=== PATIENT | male | born 1980 | race American Indian/Alaskan Native ===

== ENCOUNTER 2023-02-01 21:59 | Emergency (ER) | payer SELFPAY ==
[2023-02-01] MEDS ORDERED: Albuterol/Ipratropium 3.0-0.5 MG/3 ML Neb Soln NEB ONE (22:51)
[2023-02-01 23:14] LABS: BASOPHILS PERCENT AUTO 0.3 % (0.0-1.0); EOSINOPHILS PERCENT AUTO 3.4 % (1.0-3.0); HEMATOCRIT 42.5 % (40.0-54.0); HEMOGLOBIN 14.1 g/dL (14.0-18.0); LYMPHOCYTES PERCENT AUTO 23.7 % (20.5-50.1); MEAN CORPUSCULAR HEMOGLOBIN 28.4 pg (27.0-34.0); MEAN CORPUSCULAR HGB CONC 33.2 g/dL (33.0-35.0); MEAN CORPUSCULAR VOLUME 85.7 fL (80-100); MONOCYTES PERCENT AUTO 6.6 % (2-8); PLATELET COUNT,PLT 291 10^3/uL (150-450); RED BLOOD CELL COUNT 4.96 10^6/uL (4.6-6.2); WHITE BLOOD CELL COUNT,WBC 11.3 10^3/uL (5.0-10.0)
[2023-02-01 23:37] LABS: ALBUMIN 3.1 g/dL (3.4-5.0); ANION GAP 16.1 mEq/L (7-13); BILIRUBIN TOTAL 0.4 mg/dL (0.2-1.0); BUN/CREATININE RATIO 15.4 (No establ ref range); C-REACTIVE PROTEIN 2.53 ng/dL (<=0.30); CALCIUM 8.8 mg/dL (8.5-10.1); CREATININE 0.91 mg/dL (0.70-1.30); EST CRCL DRUG DOSING (CG) 116.07 mL/min; POTASSIUM,K 4.1 mmol/L (3.5-5.1); PROTEIN TOTAL,TP 6.8 g/dL (6.4-8.2)
[2023-02-01 23:38] LABS: LACTIC ACID 1.3 mmol/L (0.4-2.0)
[2023-02-01 23:41] LABS: A/G RATIO 0.84
[2023-02-01] MEDS ORDERED: Aspirin 81 MG Tab.Chew PO ONE (23:44)
[2023-02-02] MEDS ORDERED: Iopamidol 755 Mg/ML 100 ML Bottle IVPUSH ONE (00:26)
[2023-02-02] MEDS ORDERED: Furosemide 20 MG/2 ML VIAL IVPUSH ONE (01:03)
[2023-02-02] MEDS ORDERED: Heparin Sodium 5,000 Units/ML Vial IVPUSH ONE (02:36)
[2023-02-02] MEDS ORDERED: Heparin Sodium/0.45% NaCl 25,000 UNITS/500 ML BAG IV SCH (02:45)
[2023-02-02 02:58] LABS: PROTHROMBIN TIME 10.1 SEC (9.0-12.0); PTT,PARTIAL THROMBOPLSTIN TIME 25.5 SEC (22.0-34.0)
== END 2023-02-02 04:19 ==
LOC: DL.ED 21:59
DX: I51.7 Cardiomegaly (principal); R77.8 Other specified abnormalities of plasma proteins; I50.9 Heart failure, unspecified; F17.210 Nicotine dependence, cigarettes, uncomplicated; Z20.822 Contact with and (suspected) exposure to COVID-19
CPT/HCPCS: 36415; 71045; 71275; 80053; 83605; 83690; 83880; 84484; 85025; 85379; 85610; 85730; 86140; 87804; 93005; 93010; 96365; 96375; 99284; 99285-25; A9270-GY; J1644; J1940; J7620-GY; Q9967; U0002

== ENCOUNTER 2023-05-03 16:35 | Emergency (ER) | payer MEDICAID ==
[2023-05-03 18:34] LABS: BASOPHILS PERCENT AUTO 0.2 % (0.0-1.0); HEMOGLOBIN 12.6 g/dL (14.0-18.0); LYMPHOCYTES PERCENT AUTO 24.9 % (20.5-50.1); MEAN CORPUSCULAR HEMOGLOBIN 24.2 pg (27.0-34.0); MEAN CORPUSCULAR HGB CONC 30.7 g/dL (33.0-35.0); MEAN CORPUSCULAR VOLUME 78.7 fL (80-100); MONOCYTES PERCENT AUTO 10.2 % (2-8); NEUTROPHILS PERCENT AUTO 63.7 % (42.2-75.2); PLATELET COUNT,PLT 324 10^3/uL (150-450); RED BLOOD CELL COUNT 5.21 10^6/uL (4.6-6.2); WHITE BLOOD CELL COUNT,WBC 9.2 10^3/uL (5.0-10.0)
[2023-05-03 18:54] LABS: A/G RATIO 0.9; ALBUMIN 3.5 g/dL (3.4-5.0); ANION GAP 13.3 mEq/L (7-13); BILIRUBIN TOTAL 1.1 mg/dL (0.2-1.0); BUN/CREATININE RATIO 18.8 (No establ ref range); CALCIUM 8.9 mg/dL (8.5-10.1); CREATININE 1.44 mg/dL (0.70-1.30); POTASSIUM,K 4.3 mmol/L (3.5-5.1); PROTEIN TOTAL,TP 7.3 g/dL (6.4-8.2)
[2023-05-03] MEDS ORDERED: Furosemide 40 MG/4 ML VIAL IVPUSH ONE (19:55)
== END 2023-05-03 22:58 | disposition home or self-care (01) ==
LOC: DL.ED 16:35
DX: I50.9 Heart failure, unspecified (principal); F17.210 Nicotine dependence, cigarettes, uncomplicated; Z95.5 Presence of coronary angioplasty implant and graft
CPT/HCPCS: 36415; 71045; 80053; 83880; 84484; 85025; 93005; 93010; 96374; 99284; 99284-25; J1940

== ENCOUNTER 2023-05-11 08:59 | Emergency (ER) | payer MEDICAID ==
[2023-05-11] MEDS ORDERED: Sodium Chloride 0.9% 10 ML Syringe FLUSH PRN (09:26)
[2023-05-11] MEDS ORDERED: Furosemide 40 MG/4 ML VIAL IVPUSH ONE (09:26)
[2023-05-11 09:54] LABS: BASOPHILS PERCENT AUTO 0.3 % (0.0-1.0); EOSINOPHILS PERCENT AUTO 0.2 % (1.0-3.0); HEMOGLOBIN 12.5 g/dL (14.0-18.0); LYMPHOCYTES PERCENT AUTO 20.5 % (20.5-50.1); MEAN CORPUSCULAR HEMOGLOBIN 23.7 pg (27.0-34.0); MEAN CORPUSCULAR HGB CONC 31.3 g/dL (33.0-35.0); MEAN CORPUSCULAR VOLUME 75.9 fL (80-100); MONOCYTES PERCENT AUTO 10.4 % (2-8); NEUTROPHILS PERCENT AUTO 68.6 % (42.2-75.2); PLATELET COUNT,PLT 323 10^3/uL (150-450); RED BLOOD CELL COUNT 5.27 10^6/uL (4.6-6.2); WHITE BLOOD CELL COUNT,WBC 11.1 10^3/uL (5.0-10.0)
[2023-05-11 10:17] LABS: A/G RATIO 0.9; ALBUMIN 3.4 g/dL (3.4-5.0); ANION GAP 17.2 mEq/L (7-13); BILIRUBIN TOTAL 1.9 mg/dL (0.2-1.0); CALCIUM 8.8 mg/dL (8.5-10.1); CREATININE 1.56 mg/dL (0.70-1.30); EST CRCL DRUG DOSING (CG) 61.69 mL/min; POTASSIUM,K 5.2 mmol/L (3.5-5.1); PROTEIN TOTAL,TP 7.1 g/dL (6.4-8.2)
[2023-05-11] MEDS ORDERED: Lidocaine 1% with EPINEPHrine 1:100,000 20 ML MDV ONE (10:37)
[2023-05-13 09:41] LABS: BASO'S 0 /cu mm; EO'S 0 /cu mm; LYMPH'S 270 /cu mm; MONO'S 203 /cu mm; OTHER 11 /cu mm; PMN'S 36 /cu mm
== END 2023-05-11 12:26 ==
LOC: DL.ED 08:59
DX: I50.9 Heart failure, unspecified (principal); R18.8 Other ascites; Z79.899 Other long term (current) drug therapy; Z79.01 Long term (current) use of anticoagulants; Z79.82 Long term (current) use of aspirin
CPT/HCPCS: 36415; 49082; 71045; 80053; 82042; 83880; 84157; 84484; 85025; 87070; 89051; 93005; 93010; 96374; 99284; 99285; J1940; J3490

== ENCOUNTER 2023-05-20 04:35 | Emergency (ER) | payer MEDICAID ==
[2023-05-20] MEDS ORDERED: Sodium Chloride 0.9% 10 ML Syringe FLUSH PRN (04:45)
[2023-05-20 04:59] LABS: BASOPHILS PERCENT AUTO 0.4 % (0.0-1.0); EOSINOPHILS PERCENT AUTO 0.8 % (1.0-3.0); HEMATOCRIT 40.8 % (40.0-54.0); HEMOGLOBIN 12.9 g/dL (14.0-18.0); LYMPHOCYTES PERCENT AUTO 13.3 % (20.5-50.1); MEAN CORPUSCULAR HEMOGLOBIN 23.8 pg (27.0-34.0); MEAN CORPUSCULAR HGB CONC 31.6 g/dL (33.0-35.0); MEAN CORPUSCULAR VOLUME 75.4 fL (80-100); MONOCYTES PERCENT AUTO 9.3 % (2-8); NEUTROPHILS PERCENT AUTO 76.2 % (42.2-75.2); PLATELET COUNT,PLT 239 10^3/uL (150-450); RED BLOOD CELL COUNT 5.41 10^6/uL (4.6-6.2); WHITE BLOOD CELL COUNT,WBC 8.6 10^3/uL (5.0-10.0)
[2023-05-20 05:14] LABS: C-REACTIVE PROTEIN 1.07 ng/dL (<=0.50)
[2023-05-20 05:20] LABS: ALBUMIN 3.6 g/dL (3.4-5.0); ANION GAP 16.6 mEq/L (7-13); BILIRUBIN TOTAL 0.9 mg/dL (0.2-1.0); BUN/CREATININE RATIO 19.7 (No establ ref range); CALCIUM 8.3 mg/dL (8.5-10.1); CREATININE 1.42 mg/dL (0.70-1.30); EST CRCL DRUG DOSING (CG) 65.56 mL/min; MAGNESIUM 1.6 mg/dL (1.8-2.4); POTASSIUM,K 4.6 mmol/L (3.5-5.1); PROTEIN TOTAL,TP 7.1 g/dL (6.4-8.2)
[2023-05-20 05:22] LABS: LACTIC ACID 1.4 mmol/L (0.4-2.0)
[2023-05-20 05:24] LABS: INR 1.2 (0.9-1.2); PROTHROMBIN TIME 12.2 SEC (9.0-12.0); PTT,PARTIAL THROMBOPLSTIN TIME 27.9 SEC (22.0-34.0)
[2023-05-20] MEDS ORDERED: Bumetanide 1 MG/4 ML MDV IVPUSH ONE (05:26)
[2023-05-20 05:45] LABS: INFLUENZA A NAA POSITIVE (NEGATIVE); INFLUENZA B NAA NEGATIVE (NEGATIVE); RESPIRATORY SYNCYTIAL VIR NAA NEGATIVE (NEGATIVE)
[2023-05-20 05:46] LABS: CORONAVIRUS COVID-19 NAA POSITIVE (NEGATIVE)
[2023-05-20] MEDS ORDERED: LORazepam 2 MG/ML SDV IVPUSH ONE (06:05)
[2023-05-20] MEDS ORDERED: Sodium Chloride 0.9% 500 ML IV ONE (07:09)
[2023-05-20] MEDS ORDERED: Magnesium Sulfate/Water 2 GM in Premix Bag 1 BAG IV ONE (07:56)
[2023-05-20] MEDS ORDERED: diphenhydrAMINE 50 MG/ML SDV IVPUSH ONE (08:45)
== END 2023-05-20 08:57 | disposition home or self-care (01) ==
LOC: DL.ED 04:35
DX: U07.1 COVID-19 (principal); J11.1 Influenza due to unidentified influenza virus with other respiratory manifestations; I11.0 Hypertensive heart disease with heart failure; I50.9 Heart failure, unspecified; I25.10 Atherosclerotic heart disease of native coronary artery without angina pectoris; I25.2 Old myocardial infarction; Z95.0 Presence of cardiac pacemaker; Z95.1 Presence of aortocoronary bypass graft; Z86.16 Personal history of COVID-19; Z79.01 Long term (current) use of anticoagulants; Z79.84 Long term (current) use of oral hypoglycemic drugs; Z79.82 Long term (current) use of aspirin; Z79.899 Other long term (current) drug therapy
CPT/HCPCS: 0241U; 36415; 71045; 80053; 83605; 83735; 83880; 84145; 84484; 85025; 85610; 85730; 86140; 87040; 93005; 94660; 96374; 96375; 99285; J1200; J2060; J3475; J3490; J7040

== ENCOUNTER 2023-06-25 20:34 | Emergency (ER) | payer MEDICAID ==
[2023-06-25] MEDS ORDERED: Sodium Chloride 0.9% 10 ML Syringe FLUSH PRN (21:15)
[2023-06-25 21:28] LABS: BASOPHILS PERCENT AUTO 0.4 % (0.0-1.0); EOSINOPHILS PERCENT AUTO 1.6 % (1.0-3.0); HEMATOCRIT 41.1 % (40.0-54.0); LYMPHOCYTES PERCENT AUTO 25.4 % (20.5-50.1); MEAN CORPUSCULAR HEMOGLOBIN 23.8 pg (27.0-34.0); MEAN CORPUSCULAR HGB CONC 31.6 g/dL (33.0-35.0); MEAN CORPUSCULAR VOLUME 75.3 fL (80-100); MONOCYTES PERCENT AUTO 8.5 % (2-8); NEUTROPHILS PERCENT AUTO 64.1 % (42.2-75.2); PLATELET COUNT,PLT 266 10^3/uL (150-450); RED BLOOD CELL COUNT 5.46 10^6/uL (4.6-6.2)
[2023-06-25 21:47] LABS: A/G RATIO 1.1; ALBUMIN 3.6 g/dL (3.4-5.0); ANION GAP 17.8 mEq/L (7-13); BILIRUBIN TOTAL 1.1 mg/dL (0.2-1.0); BUN/CREATININE RATIO 16.8 (No establ ref range); CALCIUM 8.6 mg/dL (8.5-10.1); CREATININE 1.25 mg/dL (0.70-1.30); EST CRCL DRUG DOSING (CG) 76.98 mL/min; POTASSIUM,K 3.8 mmol/L (3.5-5.1); PROTEIN TOTAL,TP 6.8 g/dL (6.4-8.2)
[2023-06-25 21:51] LABS: INR 1.2 (0.9-1.2); PTT,PARTIAL THROMBOPLSTIN TIME 26.5 SEC (22.0-34.0)
[2023-06-25] MEDS ORDERED: Furosemide 40 MG/4 ML VIAL IVPUSH ONE (22:14)
== END 2023-06-25 22:52 | disposition home or self-care (01) ==
LOC: DL.ED 20:34
DX: E87.70 Fluid overload, unspecified (principal); R18.8 Other ascites; I50.9 Heart failure, unspecified; I25.10 Atherosclerotic heart disease of native coronary artery without angina pectoris; Z79.82 Long term (current) use of aspirin; Z79.01 Long term (current) use of anticoagulants; Z95.1 Presence of aortocoronary bypass graft; Z86.16 Personal history of COVID-19
CPT/HCPCS: 36415; 71045; 80053; 83690; 83880; 84484; 85025; 85610; 85730; 93010; 96374; 99284; 99285-25; J1940; J3490

== ENCOUNTER 2023-07-23 20:10 | Emergency (ER) | payer MEDICAID ==
[2023-07-23 20:46] LABS: BASOPHILS PERCENT AUTO 0.4 % (0.0-1.0); EOSINOPHILS PERCENT AUTO 0.3 % (1.0-3.0); HEMATOCRIT 41.2 % (40.0-54.0); HEMOGLOBIN 13.3 g/dL (14.0-18.0); LYMPHOCYTES PERCENT AUTO 20.7 % (20.5-50.1); MEAN CORPUSCULAR HEMOGLOBIN 23.5 pg (27.0-34.0); MEAN CORPUSCULAR HGB CONC 32.3 g/dL (33.0-35.0); MEAN CORPUSCULAR VOLUME 72.8 fL (80-100); MONOCYTES PERCENT AUTO 9.9 % (2-8); NEUTROPHILS PERCENT AUTO 68.7 % (42.2-75.2); PLATELET COUNT,PLT 308 10^3/uL (150-450); RED BLOOD CELL COUNT 5.66 10^6/uL (4.6-6.2); WHITE BLOOD CELL COUNT,WBC 10.8 10^3/uL (5.0-10.0)
[2023-07-23 21:06] LABS: A/G RATIO 1.1; ALANINE AMINOTRANSFERASE,ALT 91 U/L (16-63); ALBUMIN 3.6 g/dL (3.4-5.0); ALKALINE PHOSPHATASE 127 U/L (46-116); ANION GAP 18.8 mEq/L (7-13); ASPARTATE AMNIOTRANSFERASE,AST 101 U/L (15-37); BILIRUBIN TOTAL 1.8 mg/dL (0.2-1.0); BLOOD UREA NITROGEN,BUN 35 mg/dL (7-18); BUN/CREATININE RATIO 17.5 (No establ ref range); CALCIUM 8.7 mg/dL (8.5-10.1); CARBON DIOXIDE,CO2 22 mmol/L (21-32); CHLORIDE,CL 95 mmol/L (98-107); GLUCOSE RANDOM 107 mg/dL (70-99); MAGNESIUM 1.8 mg/dL (1.8-2.4); POTASSIUM,K 4.8 mmol/L (3.5-5.1); PROTEIN TOTAL,TP 6.8 g/dL (6.4-8.2); SODIUM,NA 131 mmol/L (136-145)
[2023-07-23 21:28] LABS: ESTIMATED GFR 42 mL/min (>=60)
[2023-07-23] MEDS: Lactated Ringers 1,000 ML IV ONE ×2 (21:56→23:47)
[2023-07-24 01:01] LABS: A/G RATIO 1.1; ALANINE AMINOTRANSFERASE,ALT 114 U/L (16-63); ALBUMIN 3.4 g/dL (3.4-5.0); ALKALINE PHOSPHATASE 125 U/L (46-116); ANION GAP 17.6 mEq/L (7-13); ASPARTATE AMNIOTRANSFERASE,AST 127 U/L (15-37); BILIRUBIN TOTAL 1.8 mg/dL (0.2-1.0); BLOOD UREA NITROGEN,BUN 37 mg/dL (7-18); BUN/CREATININE RATIO 18.6 (No establ ref range); CALCIUM 8.8 mg/dL (8.5-10.1); CARBON DIOXIDE,CO2 23 mmol/L (21-32); CHLORIDE,CL 97 mmol/L (98-107); CREATININE 1.99 mg/dL (0.70-1.30); GLUCOSE RANDOM 95 mg/dL (70-99); POTASSIUM,K 5.6 mmol/L (3.5-5.1); PROTEIN TOTAL,TP 6.5 g/dL (6.4-8.2); SODIUM,NA 132 mmol/L (136-145)
[2023-07-24 01:03] LABS: ESTIMATED GFR 42 mL/min (>=60)
[2023-07-24 02:10] LABS: BILIRUBIN,URINE SMALL (NEGATIVE); COLOR,URINE DARK YELLOW (YELLOW); GLUCOSE,URINE NEGATIVE (NEGATIVE); KETONES,URINE NEGATIVE (NEGATIVE); LEUKOCYTE ESTERASE,URINE NEGATIVE (NEGATIVE); NITRITE,URINE NEGATIVE (NEGATIVE); OCCULT BLOOD,URINE NEGATIVE (NEGATIVE); PH,URINE 5.5 (5.0-9.0); PROTEIN,URINE 100 (NEGATIVE); UROBILINOGEN,URINE >=8.0 mg/dL (0.2-1.0)
[2023-07-24] MEDS: cefTRIAXone 2 GM Vial IVPUSH ONE (02:13)
[2023-07-24 02:17] LABS: APPEARANCE,URINE CLEAR (CLEAR)
[2023-07-24 02:18] LABS: BACTERIA,URINE FEW /HPF (0-FEW/HPF); EPITHELIAL CELLS,URINE FEW /HPF (NOT SEEN); MUCUS,URINE FEW /LPF (NOT SEEN); RBC,URINE 0-5 /HPF (0-5); WBC,URINE 0-5 /HPF (0-5/HPF)
[2023-07-24 02:19] LABS: CALCIUM OXALATE CRYSTALS,URINE RARE /HPF (NOT SEEN); HYALINE CASTS,URINE FEW
[2023-07-24 02:21] LABS: BLOOD UREA NITROGEN,BUN 37 mg/dL (7-18); CALCIUM 9.3 mg/dL (8.5-10.1); CARBON DIOXIDE,CO2 23 mmol/L (21-32); CHLORIDE,CL 95 mmol/L (98-107); CREATININE 1.99 mg/dL (0.70-1.30); ESTIMATED GFR 42 mL/min (>=60); GLUCOSE RANDOM 91 mg/dL (70-99); SODIUM,NA 132 mmol/L (136-145)
[2023-07-24] MEDS: Ondansetron 4 MG/2 ML SDV IVPUSH ONE (02:29)
[2023-07-24 03:28] LABS: INR 1.7 (0.9-1.2)
== END 2023-07-24 03:45 | disposition critical access hospital (66) ==
LOC: DL.ED 20:10 → SUPCPDRO 20:10 → DL.ED 07-24 03:45
DX: N17.9 Acute kidney failure, unspecified (principal); R55 Syncope and collapse; I11.0 Hypertensive heart disease with heart failure; I50.9 Heart failure, unspecified; E11.9 Type 2 diabetes mellitus without complications; E78.00 Pure hypercholesterolemia, unspecified; F17.210 Nicotine dependence, cigarettes, uncomplicated; Z95.1 Presence of aortocoronary bypass graft; Z79.82 Long term (current) use of aspirin; Z79.01 Long term (current) use of anticoagulants; Z79.899 Other long term (current) drug therapy; Z79.84 Long term (current) use of oral hypoglycemic drugs
CPT/HCPCS: 36415; 71046; 80048; 80053; 81001; 83605; 83735; 83880; 84145; 84484; 85025; 85610; 87040; 93005; 93010; 96361; 96374; 96375; 99285; J0696; J2405; J7120

== ENCOUNTER 2024-03-12 04:03 | Emergency (ER) | payer SELFPAY ==
[2024-03-12 04:33] LABS: BASOPHILS PERCENT AUTO 0.3 % (0.0-1.0); EOSINOPHILS PERCENT AUTO 0.4 % (1.0-3.0); HEMATOCRIT 47.6 % (40.0-54.0); HEMOGLOBIN 14.8 g/dL (14.0-18.0); LYMPHOCYTES PERCENT AUTO 14.8 % (20.5-50.1); MEAN CORPUSCULAR HEMOGLOBIN 24.5 pg (27.0-34.0); MEAN CORPUSCULAR HGB CONC 31.1 g/dL (33.0-35.0); MEAN CORPUSCULAR VOLUME 78.9 fL (80-100); MONOCYTES PERCENT AUTO 10.2 % (2-8); NEUTROPHILS PERCENT AUTO 74.3 % (42.2-75.2); PLATELET COUNT,PLT 328 10^3/uL (150-450); RED BLOOD CELL COUNT 6.03 10^6/uL (4.6-6.2); WHITE BLOOD CELL COUNT,WBC 10.5 10^3/uL (5.0-10.0)
[2024-03-12] MEDS: Sodium Chloride 0.9% 1,000 ML IV ONE (04:45)
[2024-03-12] MEDS: Ondansetron 4 MG in Sodium Chloride 0.9% 50 ML IV ONE (04:47)
[2024-03-12 04:48] LABS: B-TYPE NATRIURETIC PEPTIDE,BNP 2880 pg/ml (0-100)
[2024-03-12 04:49] LABS: LACTIC ACID 2.3 mmol/L (0.4-2.0)
[2024-03-12 04:50] LABS: ALANINE AMINOTRANSFERASE,ALT 32 U/L (16-63); ALBUMIN 3.3 g/dL (3.4-5.0); ALKALINE PHOSPHATASE 165 U/L (46-116); ANION GAP 15.7 mEq/L (7-13); ASPARTATE AMNIOTRANSFERASE,AST 26 U/L (15-37); BILIRUBIN TOTAL 1.4 mg/dL (0.2-1.0); BLOOD UREA NITROGEN,BUN 20 mg/dL (7-18); BUN/CREATININE RATIO 13.2 (No establ ref range); CALCIUM 8.9 mg/dL (8.5-10.1); CARBON DIOXIDE,CO2 24 mmol/L (21-32); CHLORIDE,CL 102 mmol/L (98-107); CREATININE 1.51 mg/dL (0.70-1.30); GLUCOSE RANDOM 160 mg/dL (70-99); POTASSIUM,K 4.7 mmol/L (3.5-5.1); PROTEIN TOTAL,TP 6.3 g/dL (6.4-8.2); SODIUM,NA 137 mmol/L (136-145)
[2024-03-12 04:52] LABS: INR 1.4 (0.9-1.2); PROTHROMBIN TIME 13.8 SEC (9.0-12.0)
[2024-03-12] MEDS: Piperacillin/Tazobactam 3.375 GM in Sodium Chloride 0.9% 100 ML IV ONE (04:57)
[2024-03-12 05:01] LABS: C-REACTIVE PROTEIN < 0.50 ng/dL (<=0.50); ESTIMATED GFR 58 mL/min (>=60)
[2024-03-12] MEDS: Albuterol/Ipratropium 3.0-0.5 MG/3 ML Neb Soln NEB ONE (05:27)
[2024-03-12] MEDS: Iopamidol 755 Mg/ML 100 ML Bottle IVPUSH ONE (05:44)
[2024-03-12] MEDS: Magnesium Sulfate/Water Premix 2 GM in Premix Bag 1 BAG IV SCH (06:31)
[2024-03-12 07:37] LABS: AMPHETAMINES,URINE NEGATIVE (NEGATIVE); BARBITURATES,URINE NEGATIVE (NEGATIVE); BENZODIAZEPINE,URINE NEGATIVE (NEGATIVE); MDMA (ECSTASY), URINE NEGATIVE (NEGATIVE); METHADONE,URINE NEGATIVE (NEGATIVE); METHAMPHETAMINES,URINE POSITIVE (NEGATIVE); OPIATES,URINE NEGATIVE (NEGATIVE); OXYCODONE,URINE NEGATIVE (NEGATIVE); PHENCYCLIDINE,URINE NEGATIVE (NEGATIVE); TCA,URINE NEGATIVE (NEGATIVE)
[2024-03-12 07:41] LABS: APPEARANCE,URINE CLEAR (CLEAR); BILIRUBIN,URINE NEGATIVE (NEGATIVE); COLOR,URINE YELLOW (YELLOW); GLUCOSE,URINE NEGATIVE (NEGATIVE); KETONES,URINE NEGATIVE (NEGATIVE); LEUKOCYTE ESTERASE,URINE NEGATIVE (NEGATIVE); NITRITE,URINE NEGATIVE (NEGATIVE); OCCULT BLOOD,URINE NEGATIVE (NEGATIVE); PH,URINE 5.5 (5.0-9.0); PROTEIN,URINE 100 (NEGATIVE)
[2024-03-12] MEDS: Pantoprazole 40 MG Vial IVPUSH ONE (07:48)
[2024-03-12 07:57] LABS: BACTERIA,URINE FEW /HPF (0-FEW/HPF); EPITHELIAL CELLS,URINE FEW /HPF (NOT SEEN); HYALINE CASTS,URINE FEW; RBC,URINE 0-5 /HPF (0-5)
[2024-03-12 12:22] LABS: HEMATOCRIT 44.9 % (40.0-54.0); HEMOGLOBIN 13.9 g/dL (14.0-18.0)
== END 2024-03-12 13:47 ==
LOC: DL.ED 04:03
DX: K92.0 Hematemesis (principal); K76.0 Fatty (change of) liver, not elsewhere classified; R00.0 Tachycardia, unspecified; I11.0 Hypertensive heart disease with heart failure; I50.9 Heart failure, unspecified; E11.9 Type 2 diabetes mellitus without complications; Z79.82 Long term (current) use of aspirin; Z79.899 Other long term (current) drug therapy; Z79.4 Long term (current) use of insulin
CPT/HCPCS: 36415; 71045; 74177; 80053; 80305; 81001; 82140; 83605; 83690; 83735; 83880; 84484; 85014; 85018; 85025; 85610; 86140; 87040; 87635; 87804; 93010; 96365; 96367; 96375; 99285; J2405; J2470; J2543; J3475; J3490; J7030; Q9967; J7620-GY; U0002

== ENCOUNTER 2024-03-20 09:36 | Emergency (ER) | payer MEDICAID ==
[2024-03-20 10:48] LABS: BASOPHILS PERCENT AUTO 0.3 % (0.0-1.0); EOSINOPHILS PERCENT AUTO 1.1 % (1.0-3.0); HEMATOCRIT 43.3 % (40.0-54.0); HEMOGLOBIN 13.9 g/dL (14.0-18.0); LYMPHOCYTES PERCENT AUTO 8.7 % (20.5-50.1); MEAN CORPUSCULAR HGB CONC 32.1 g/dL (33.0-35.0); MONOCYTES PERCENT AUTO 7.9 % (2-8); PLATELET COUNT,PLT 198 10^3/uL (150-450); RED BLOOD CELL COUNT 5.55 10^6/uL (4.6-6.2); WHITE BLOOD CELL COUNT,WBC 11.5 10^3/uL (5.0-10.0)
[2024-03-20 11:19] LABS: A/G RATIO 1.8; ALBUMIN 3.6 g/dL (3.4-5.0); ANION GAP 12.5 mEq/L (7-13); BILIRUBIN TOTAL 1.2 mg/dL (0.2-1.0); CALCIUM 8.7 mg/dL (8.5-10.1); CREATININE 1.08 mg/dL (0.70-1.30); EST CRCL DRUG DOSING (CG) 85.32 mL/min; POTASSIUM,K 4.5 mmol/L (3.5-5.1); PROTEIN TOTAL,TP 5.6 g/dL (6.4-8.2)
== END 2024-03-20 11:54 | disposition home or self-care (01) ==
LOC: DL.ED 09:36
DX: T82.9XXA Unspecified complication of cardiac and vascular prosthetic device, implant and graft, initial encounter (principal); E87.1 Hypo-osmolality and hyponatremia; I25.10 Atherosclerotic heart disease of native coronary artery without angina pectoris; I11.0 Hypertensive heart disease with heart failure; I10 Essential (primary) hypertension; E11.9 Type 2 diabetes mellitus without complications; Z95.5 Presence of coronary angioplasty implant and graft; Z79.82 Long term (current) use of aspirin; Z79.84 Long term (current) use of oral hypoglycemic drugs; Z79.899 Other long term (current) drug therapy
CPT/HCPCS: 36415; 71046; 80053; 84484; 85025; 93005; 93010; 99284

== ENCOUNTER 2024-03-20 18:46 | Emergency (ER) | payer BC, MEDICAID | END 2024-03-20 20:55 | disposition left against medical advice (07) | LOC: DL.ED 18:46 | DX: Z53.21 Procedure and treatment not carried out due to patient leaving prior to being seen by health care provider (principal) ==

== ENCOUNTER 2024-04-13 03:03 | Emergency (ER) | payer MEDICAID ==
[2024-04-13 03:20] LABS: HEMATOCRIT 39.9 % (40.0-54.0); HEMOGLOBIN 12.9 g/dL (14.0-18.0); MEAN CORPUSCULAR HEMOGLOBIN 25.7 pg (27.0-34.0); MEAN CORPUSCULAR HGB CONC 32.3 g/dL (33.0-35.0); MEAN CORPUSCULAR VOLUME 79.6 fL (80-100); PLATELET COUNT,PLT 327 10^3/uL (150-450); RED BLOOD CELL COUNT 5.01 10^6/uL (4.6-6.2); WHITE BLOOD CELL COUNT,WBC 12.3 10^3/uL (5.0-10.0)
[2024-04-13 03:31] LABS: BASOPHILS PERCENT AUTO 0.3 % (0.0-1.0); EOSINOPHILS PERCENT AUTO 0.7 % (1.0-3.0); LYMPHOCYTES PERCENT AUTO 9.8 % (20.5-50.1); MONOCYTES PERCENT AUTO 9.9 % (2-8); NEUTROPHILS PERCENT AUTO 79.3 % (42.2-75.2)
[2024-04-13 04:02] LABS: ALBUMIN 3.3 g/dL (3.4-5.0); ANION GAP 13.2 mEq/L (7-13); BILIRUBIN TOTAL 0.5 mg/dL (0.2-1.0); BUN/CREATININE RATIO 30.8 (No establ ref range); CALCIUM 8.7 mg/dL (8.5-10.1); CREATININE 1.56 mg/dL (0.70-1.30); EST CRCL DRUG DOSING (CG) 61.06 mL/min; MAGNESIUM 1.7 mg/dL (1.8-2.4); POTASSIUM,K 4.2 mmol/L (3.5-5.1); PROTEIN TOTAL,TP 5.6 g/dL (6.4-8.2)
[2024-04-13 04:03] LABS: A/G RATIO 1.43
[2024-04-13] MEDS: Acetaminophen 325 MG Tab PO ONE (04:26)
[2024-04-13] MEDS: Magnesium Oxide 400 MG Tab PO ONE (04:26)
[2024-04-13] MEDS: Sodium Chloride 0.9% 500 ML IV ONE (04:29)
[2024-04-13 04:39] LABS: BAND PERCENT MAN 2 %; LYMPHOCYTES PERCENT MAN 6 % (20-50); MONOCYTES PERCENT MAN 8 % (2-8)
[2024-04-13 04:40] LABS: SEG NEUTROPHILS PERCENT MAN 84 % (42-75)
== END 2024-04-13 04:57 | disposition home or self-care (01) ==
LOC: DL.ED 03:03
DX: R25.2 Cramp and spasm (principal); E83.42 Hypomagnesemia; E87.1 Hypo-osmolality and hyponatremia; N28.9 Disorder of kidney and ureter, unspecified; I25.10 Atherosclerotic heart disease of native coronary artery without angina pectoris; I11.0 Hypertensive heart disease with heart failure; I50.9 Heart failure, unspecified; E11.9 Type 2 diabetes mellitus without complications; Z95.5 Presence of coronary angioplasty implant and graft; Z79.01 Long term (current) use of anticoagulants; Z79.82 Long term (current) use of aspirin; Z79.84 Long term (current) use of oral hypoglycemic drugs; Z79.899 Other long term (current) drug therapy
CPT/HCPCS: 36415; 80053; 82550; 83735; 85025; 99284; A9270-GY; J7030

== ENCOUNTER 2024-05-29 00:20 | Emergency (ER) | payer MEDICAID | END 2024-05-29 00:36 | disposition left against medical advice (07) | LOC: DL.ED 00:20 | DX: Z53.21 Procedure and treatment not carried out due to patient leaving prior to being seen by health care provider (principal) ==

== ENCOUNTER 2024-06-27 12:44 | Emergency (ER) | payer MEDICAID ==
[2024-06-27 13:40] LABS: HEMATOCRIT 33.5 % (40.0-54.0); HEMOGLOBIN 10.3 g/dL (14.0-18.0); MEAN CORPUSCULAR HGB CONC 30.7 g/dL (33.0-35.0); MEAN CORPUSCULAR VOLUME 74.8 fL (80-100); PLATELET COUNT,PLT 332 10^3/uL (150-450); RED BLOOD CELL COUNT 4.48 10^6/uL (4.6-6.2)
[2024-06-27 13:46] LABS: LYMPHOCYTES PERCENT AUTO 8.2 % (20.5-50.1); MONOCYTES PERCENT AUTO 8.1 % (2-8); NEUTROPHILS PERCENT AUTO 82.3 % (42.2-75.2)
[2024-06-27 13:47] LABS: BASOPHILS PERCENT AUTO 0.5 % (0.0-1.0); EOSINOPHILS PERCENT AUTO 0.9 % (1.0-3.0)
[2024-06-27 14:09] LABS: ALANINE AMINOTRANSFERASE,ALT 17 U/L (16-63); ALBUMIN 2.5 g/dL (3.4-5.0); ALKALINE PHOSPHATASE 212 U/L (46-116); ANION GAP 13.3 mEq/L (7-13); ASPARTATE AMNIOTRANSFERASE,AST 14 U/L (15-37); BILIRUBIN DIRECT 0.2 mg/dL (0.0-0.2); BILIRUBIN INDIRECT 0.3; BILIRUBIN TOTAL 0.5 mg/dL (0.2-1.0); BLOOD UREA NITROGEN,BUN 45 mg/dL (7-18); CARBON DIOXIDE,CO2 26 mmol/L (21-32); CHLORIDE,CL 89 mmol/L (98-107); MAGNESIUM 1.6 mg/dL (1.8-2.4); POTASSIUM,K 4.3 mmol/L (3.5-5.1); PROTEIN TOTAL,TP 5.8 g/dL (6.4-8.2); SODIUM,NA 124 mmol/L (136-145)
[2024-06-27 14:10] LABS: A/G RATIO 0.76; BAND PERCENT MAN 1 %; ESTIMATED GFR 54 mL/min (>=60); LYMPHOCYTES PERCENT MAN 9 % (20-50); MONOCYTES PERCENT MAN 9 % (2-8); SEG NEUTROPHILS PERCENT MAN 81 % (42-75)
[2024-06-27 14:11] LABS: GLUCOSE RANDOM 440 mg/dL (70-99)
[2024-06-27] MEDS ORDERED: 50% Dextrose in Water 50 ML Syringe IVPUSH PRN (14:15)
[2024-06-27] MEDS ORDERED: Glucagon,Human Recombinant 1 MG Vial IM PRN (14:15)
[2024-06-27] MEDS ORDERED: Sodium Chloride 0.9% 1,000 ML IV SCH (14:15)
[2024-06-27] MEDS: Insulin Regular, Human 100 Units/ML 10 ML Vial IV ONE (14:27)
[2024-06-27] MEDS: Sodium Chloride 0.9% 500 ML IV SCH (14:29)
[2024-06-27 16:31] LABS: BLOOD UREA NITROGEN,BUN 44 mg/dL (7-18); CALCIUM 8.2 mg/dL (8.5-10.1); CARBON DIOXIDE,CO2 28 mmol/L (21-32); CHLORIDE,CL 92 mmol/L (98-107); CREATININE 1.54 mg/dL (0.70-1.30); ESTIMATED GFR 57 mL/min (>=60); GLUCOSE RANDOM 246 mg/dL (70-99); SODIUM,NA 128 mmol/L (136-145)
== END 2024-06-27 17:05 | disposition home or self-care (01) ==
LOC: DL.ED 12:44
DX: U07.1 COVID-19 (principal); E87.1 Hypo-osmolality and hyponatremia; I11.0 Hypertensive heart disease with heart failure; I50.9 Heart failure, unspecified; I25.10 Atherosclerotic heart disease of native coronary artery without angina pectoris; E11.9 Type 2 diabetes mellitus without complications; Z95.1 Presence of aortocoronary bypass graft; Z79.84 Long term (current) use of oral hypoglycemic drugs; Z79.899 Other long term (current) drug therapy; Z79.01 Long term (current) use of anticoagulants; Z79.82 Long term (current) use of aspirin
CPT/HCPCS: 36415; 71045; 80048; 80076; 82947; 83735; 83880; 84484; 85025; 87040; 87428; 93005; 96360; 99285; A9270; J7030; 93010; 99284

== ENCOUNTER 2024-08-21 13:39 | Emergency (ER) | payer MEDICAID ==
[2024-08-21 14:49] LABS: BASOPHILS PERCENT AUTO 0.2 % (0.0-1.0); EOSINOPHILS PERCENT AUTO 0.7 % (1.0-3.0); HEMATOCRIT 36.5 % (40.0-54.0); HEMOGLOBIN 11.1 g/dL (14.0-18.0); LYMPHOCYTES PERCENT AUTO 6.3 % (20.5-50.1); MEAN CORPUSCULAR HEMOGLOBIN 20.9 pg (27.0-34.0); MEAN CORPUSCULAR HGB CONC 30.4 g/dL (33.0-35.0); MEAN CORPUSCULAR VOLUME 68.7 fL (80-100); MONOCYTES PERCENT AUTO 8.8 % (2-8); PLATELET COUNT,PLT 417 10^3/uL (150-450); RED BLOOD CELL COUNT 5.31 10^6/uL (4.6-6.2); WHITE BLOOD CELL COUNT,WBC 13.6 10^3/uL (5.0-10.0)
[2024-08-21 14:58] LABS: APPEARANCE,URINE CLEAR (CLEAR); BILIRUBIN,URINE NEGATIVE (NEGATIVE); COLOR,URINE DARK YELLOW (YELLOW); GLUCOSE,URINE 100 (NEGATIVE); KETONES,URINE NEGATIVE (NEGATIVE); LEUKOCYTE ESTERASE,URINE NEGATIVE (NEGATIVE); NITRITE,URINE NEGATIVE (NEGATIVE); OCCULT BLOOD,URINE NEGATIVE (NEGATIVE); PROTEIN,URINE NEGATIVE (NEGATIVE)
[2024-08-21 15:05] LABS: CALCIUM 8.4 mg/dL (8.5-10.1); CREATININE 1.39 mg/dL (0.70-1.30); EST CRCL DRUG DOSING (CG) 68.52 mL/min; POTASSIUM,K 4.8 mmol/L (3.5-5.1)
[2024-08-21 15:07] LABS: ANION GAP 13.8 mEq/L (7-13)
== END 2024-08-21 16:23 ==
LOC: DL.ED 13:39
DX: K70.40 Alcoholic hepatic failure without coma (principal); E87.1 Hypo-osmolality and hyponatremia; N28.9 Disorder of kidney and ureter, unspecified; I11.0 Hypertensive heart disease with heart failure; I50.9 Heart failure, unspecified; E11.9 Type 2 diabetes mellitus without complications; I25.10 Atherosclerotic heart disease of native coronary artery without angina pectoris; Z79.899 Other long term (current) drug therapy; Z79.82 Long term (current) use of aspirin; Z79.01 Long term (current) use of anticoagulants; Z79.84 Long term (current) use of oral hypoglycemic drugs; Z99.2 Dependence on renal dialysis
CPT/HCPCS: 36415; 80048; 81003; 85025; 99285

== ENCOUNTER 2025-02-11 21:14 | Inpatient (IN) | payer MEDICAID ==
[2025-02-11 21:39] LABS: BASOPHILS PERCENT AUTO 0.3 % (0.0-1.0); EOSINOPHILS PERCENT AUTO 4.0 % (1.0-3.0); LYMPHOCYTES PERCENT AUTO 6.3 % (20.5-50.1); MONOCYTES PERCENT AUTO 6.7 % (2-8); NEUTROPHILS PERCENT AUTO 82.7 % (42.2-75.2); PLATELET COUNT,PLT 276 10^3/uL (150-450); RED BLOOD CELL COUNT 5.53 10^6/uL (4.6-6.2); WHITE BLOOD CELL COUNT,WBC 10.1 10^3/uL (5.0-10.0)
[2025-02-11 21:48] LABS: O2 DELIVERY DEVICE ROOM AIR; PH,VENOUS 7.39 (7.31-7.41)
[2025-02-11 21:49] LABS: PCO2 VENOUS 46 mmHg (41-51); PO2 VENOUS 57 mmHg (35-42)
[2025-02-11 21:49] LABS: APPEARANCE,URINE CLEAR (CLEAR); GLUCOSE,URINE >=1000 (NEGATIVE); OCCULT BLOOD,URINE NEGATIVE (NEGATIVE)
[2025-02-11 21:50] LABS: BICARBONATE,VENOUS 27 mmol/l (19-25); O2 SATURATION VENOUS 84 % (60-80)
[2025-02-11 21:51] LABS: BASE EXCESS VENOUS 1.7 mmol/l ((-2)-(+3))
[2025-02-11] MEDS: Lactated Ringers 1,000 ML IV SCH (21:52)
[2025-02-11 21:53] LABS: KETONES,BLOOD NEGATIVE
[2025-02-11 22:00] LABS: ALANINE AMINOTRANSFERASE,ALT 27 U/L (16-63); ASPARTATE AMNIOTRANSFERASE,AST 22 U/L (15-37); BILIRUBIN TOTAL 0.9 mg/dL (0.2-1.0); BLOOD UREA NITROGEN,BUN 7 mg/dL (7-18); CARBON DIOXIDE,CO2 28 mmol/L (21-32); CHLORIDE,CL 89 mmol/L (98-107); CREATININE 1.07 mg/dL (0.70-1.30); EST CRCL DRUG DOSING (CG) 88.10 mL/min; POTASSIUM,K 3.2 mmol/L (3.5-5.1); PROTEIN TOTAL,TP 6.6 g/dL (6.4-8.2); SODIUM,NA 125 mmol/L (136-145)
[2025-02-11 22:02] LABS: LACTIC ACID 2.4 mmol/L (0.4-2.0)
[2025-02-11 22:03] LABS: A/G RATIO 0.89; ESTIMATED GFR 88 mL/min (>=60); GLUCOSE RANDOM 664 mg/dL (70-99)
[2025-02-11 22:03] LABS: EPITHELIAL CELLS,URINE RARE /HPF (NOT SEEN)
[2025-02-11 22:09] LABS: INR 1.0 (0.9-1.2)
[2025-02-11] MEDS: Potassium Chloride 20 MEQ in Premix Bag 1 BAG IV ONE (22:19)
[2025-02-11] MEDS: Potassium Chloride 10 MEQ Tab.ER PO ONE (22:20)
[2025-02-11] MEDS ORDERED: 50% Dextrose in Water 50 ML Syringe IVPUSH PRN (23:09)
[2025-02-11] MEDS ORDERED: Metoprolol Tartrate 5 MG/5 ML SDV IVPUSH PRN (23:10)
[2025-02-11] MEDS ORDERED: Ondansetron 4 MG/2 ML SDV IVPUSH PRN (23:14)
[2025-02-11] MEDS ORDERED: Sennosides/Docusate Sodium 50-8.6 MG Tab PO PRN (23:14)
[2025-02-11] MEDS ORDERED: Magnesium Hydroxide 400 MG/5 ML Susp 30 ML Cup PO PRN (23:14)
[2025-02-11 23:15] LABS: AMPHETAMINES,URINE NEGATIVE (NEGATIVE); BARBITURATES,URINE NEGATIVE (NEGATIVE); MDMA (ECSTASY), URINE NEGATIVE (NEGATIVE); METHAMPHETAMINES,URINE NEGATIVE (NEGATIVE); OPIATES,URINE NEGATIVE (NEGATIVE); OXYCODONE,URINE NEGATIVE (NEGATIVE); PHENCYCLIDINE,URINE NEGATIVE (NEGATIVE); TCA,URINE NEGATIVE (NEGATIVE)
[2025-02-11] MEDS: Hydrocortisone Sodium Succinate 100 MG/2 ML SDV IVPUSH ONE (23:53)
[2025-02-11] MEDS: Albumin Human 50 GM in Premix Bag 1 BAG IV ONE (23:53)
[2025-02-11] MEDS: Insulin Glarg,Human.Rec.Analog 100 Unit/ML 10 ML Vial SUBCUT ONE (23:54)
[2025-02-12 06:36] LABS: PLATELET COUNT,PLT 291 10^3/uL (150-450); RED BLOOD CELL COUNT 5.32 10^6/uL (4.6-6.2); WHITE BLOOD CELL COUNT,WBC 10.9 10^3/uL (5.0-10.0)
[2025-02-12 06:50] LABS: BASOPHILS PERCENT AUTO 0.2 % (0.0-1.0); EOSINOPHILS PERCENT AUTO 0.5 % (1.0-3.0); LYMPHOCYTES PERCENT AUTO 5.5 % (20.5-50.1); MONOCYTES PERCENT AUTO 2.9 % (2-8); NEUTROPHILS PERCENT AUTO 90.9 % (42.2-75.2)
[2025-02-12 07:03] LABS: A/G RATIO 1.2; ALANINE AMINOTRANSFERASE,ALT 21.0 U/L (16-63); ASPARTATE AMNIOTRANSFERASE,AST 14.0 U/L (15-37); BILIRUBIN TOTAL 1.7 mg/dL (0.2-1.0); BLOOD UREA NITROGEN,BUN 7.0 mg/dL (7-18); CARBON DIOXIDE,CO2 28.0 mmol/L (21-32); CHLORIDE,CL 94.0 mmol/L (98-107); CREATININE 0.77 mg/dL (0.70-1.30); EST CRCL DRUG DOSING (CG) 122.42 mL/min; POTASSIUM,K 3.8 mmol/L (3.5-5.1); PROTEIN TOTAL,TP 6.5 g/dL (6.4-8.2); SODIUM,NA 130.0 mmol/L (136-145)
[2025-02-12 07:11] LABS: ESTIMATED GFR 113.0 mL/min (>=60); GLUCOSE RANDOM 406.0 mg/dL (70-99)
[2025-02-12 07:39] LABS: BAND PERCENT MAN 2 %; LYMPHOCYTES PERCENT MAN 7 % (20-50); MONOCYTES PERCENT MAN 2 % (2-8); SEG NEUTROPHILS PERCENT MAN 89 % (42-75)
[2025-02-12] MEDS ORDERED: Insulin Glarg,Human.Rec.Analog 100 Unit/ML 10 ML Vial SUBCUT SCH ×2 (09:00)
[2025-02-12] MEDS: Potassium Chloride 10 MEQ Tab.ER PO SCH (09:50)
[2025-02-12] MEDS: Insulin Glarg,Human.Rec.Analog 100 Unit/ML 10 ML Vial SUBCUT SCH (10:00)
[2025-02-12] MEDS: Acetaminophen/HYDROcodone 325-5 MG Tab PO PRN (20:04)
[2025-02-13 06:12] LABS: BASOPHILS PERCENT AUTO 0.3 % (0.0-1.0); EOSINOPHILS PERCENT AUTO 3.1 % (1.0-3.0); LYMPHOCYTES PERCENT AUTO 10.9 % (20.5-50.1); MONOCYTES PERCENT AUTO 7.7 % (2-8); NEUTROPHILS PERCENT AUTO 78.0 % (42.2-75.2); PLATELET COUNT,PLT 304 10^3/uL (150-450); RED BLOOD CELL COUNT 5.62 10^6/uL (4.6-6.2); WHITE BLOOD CELL COUNT,WBC 11.1 10^3/uL (5.0-10.0)
[2025-02-13 06:32] LABS: ALANINE AMINOTRANSFERASE,ALT 23.0 U/L (16-63); ASPARTATE AMNIOTRANSFERASE,AST 22.0 U/L (15-37); BILIRUBIN TOTAL 1.0 mg/dL (0.2-1.0); BLOOD UREA NITROGEN,BUN 7.0 mg/dL (7-18); CARBON DIOXIDE,CO2 27.0 mmol/L (21-32); CHLORIDE,CL 98.0 mmol/L (98-107); CREATININE 0.76 mg/dL (0.70-1.30); EST CRCL DRUG DOSING (CG) 124.04 mL/min; GLUCOSE RANDOM 95.0 mg/dL (70-99); POTASSIUM,K 3.4 mmol/L (3.5-5.1); PROTEIN TOTAL,TP 6.2 g/dL (6.4-8.2)
[2025-02-13 06:38] LABS: A/G RATIO 1.07; ESTIMATED GFR 114.0 mL/min (>=60); SODIUM,NA 135.0 mmol/L (136-145)
[2025-02-13] MEDS: Potassium Chloride 10 MEQ Tab.ER PO ONE (15:01)
[2025-02-13] MEDS: Insulin Glarg,Human.Rec.Analog 100 Unit/ML 10 ML Vial SUBCUT ONE (17:32)
== END 2025-02-13 18:05 | disposition home or self-care (01) | DRG 637 ==
LOC: DL.ED 21:14 → DL.MS 22:27
PROVIDERS: ADMIT Internal Medicine; ATTEND Internal Medicine
PROC: 30233J1 Transfusion of Nonautologous Serum Albumin into Peripheral Vein, Percutaneous Approach (ICD-10-PCS; principal; 2025-02-11)
DX: E11.65 Type 2 diabetes mellitus with hyperglycemia (principal); N18.6 End stage renal disease; I50.22 Chronic systolic (congestive) heart failure; E87.1 Hypo-osmolality and hyponatremia; I13.2 Hypertensive heart and chronic kidney disease with heart failure and with stage 5 chronic kidney disease, or end stage renal disease; I42.9 Cardiomyopathy, unspecified; I25.10 Atherosclerotic heart disease of native coronary artery without angina pectoris; K74.60 Unspecified cirrhosis of liver; E78.5 Hyperlipidemia, unspecified; D63.1 Anemia in chronic kidney disease; E87.8 Other disorders of electrolyte and fluid balance, not elsewhere classified; E88.09 Other disorders of plasma-protein metabolism, not elsewhere classified; I95.9 Hypotension, unspecified; E11.22 Type 2 diabetes mellitus with diabetic chronic kidney disease; R74.8 Abnormal levels of other serum enzymes; Z95.0 Presence of cardiac pacemaker; Z95.1 Presence of aortocoronary bypass graft; Z79.01 Long term (current) use of anticoagulants; I11.0 Hypertensive heart disease with heart failure; I50.9 Heart failure, unspecified; Z79.84 Long term (current) use of oral hypoglycemic drugs; Z79.4 Long term (current) use of insulin; Z79.82 Long term (current) use of aspirin; Z79.899 Other long term (current) drug therapy
CPT/HCPCS: 36415; 80053; 80162; 80305; 81001; 82009; 82803; 82947; 83036; 83605; 83735; 84484; 85025; 85610; 96374; 96375; 99285; A9270; J3480; J7120; J1650; J1720; J1815-GY; P9047

== ENCOUNTER 2025-04-18 20:05 | Inpatient (IN) | payer MEDICAID ==
[2025-04-18] MEDS ORDERED: Sodium Chloride 0.9% 10 ML Syringe FLUSH PRN (20:37)
[2025-04-18 20:45] LABS: BASOPHILS PERCENT AUTO 0.1 % (0.0-1.0); EOSINOPHILS PERCENT AUTO 0.0 % (1.0-3.0); LYMPHOCYTES PERCENT AUTO 1.7 % (20.5-50.1); MONOCYTES PERCENT AUTO 4.2 % (2-8); NEUTROPHILS PERCENT AUTO 94.0 % (42.2-75.2); PLATELET COUNT,PLT 251 10^3/uL (150-450); RED BLOOD CELL COUNT 6.13 10^6/uL (4.6-6.2); WHITE BLOOD CELL COUNT,WBC 26.0 10^3/uL (5.0-10.0)
[2025-04-18 20:59] LABS: INR 1.2 (0.9-1.2); PTT,PARTIAL THROMBOPLSTIN TIME 29.2 SEC (22.0-34.0)
[2025-04-18 21:12] LABS: ALANINE AMINOTRANSFERASE,ALT 16 U/L (16-63); ASPARTATE AMNIOTRANSFERASE,AST 20 U/L (15-37); BILIRUBIN TOTAL 3.6 mg/dL (0.2-1.0); BLOOD UREA NITROGEN,BUN 27 mg/dL (7-18); CARBON DIOXIDE,CO2 23 mmol/L (21-32); CHLORIDE,CL 89 mmol/L (98-107); CREATININE 1.63 mg/dL (0.70-1.30); EST CRCL DRUG DOSING (CG) 69.12 mL/min; GLUCOSE RANDOM 238 mg/dL (70-99); POTASSIUM,K 5.3 mmol/L (3.5-5.1); PROTEIN TOTAL,TP 7.0 g/dL (6.4-8.2); SODIUM,NA 126 mmol/L (136-145)
[2025-04-18 21:15] LABS: LACTIC ACID 3.4 mmol/L (0.4-2.0)
[2025-04-18 21:20] LABS: A/G RATIO 0.71; ESTIMATED GFR 53 mL/min (>=60)
[2025-04-18 21:21] LABS: ETHANOL BLOOD MEDICAL < 3 mg/dL (0)
[2025-04-18] MEDS: Diphtheria,Pertussis(Acell),Tetanus Vaccine 0.5 ML Syringe IM ONE (22:05)
[2025-04-18] MEDS: Hydrocortisone Sodium Succinate 100 MG/2 ML SDV IVPUSH ONE (23:23)
[2025-04-18] MEDS: Metoprolol Tartrate 5 MG/5 ML SDV IVPUSH PRN (23:23)
[2025-04-18] MEDS ORDERED: Magnesium Sulfate/D5W 1 GM/100 ML BAG IV ONE (23:24)
[2025-04-18] MEDS ORDERED: Flumazenil 0.1 MG/ML 5 ML MDV IVPUSH PRN (23:25)
[2025-04-18] MEDS: Bacitracin/Neomycin/Polymyxin B Oint 28.4 GM Tube TOP ONE (23:26)
[2025-04-18] MEDS: Sodium Polystyrene Sulfonate 15 GM/60 ML Susp 60 ML Bot PO ONE (23:28)
[2025-04-18] MEDS: Albumin Human 25 GM in Premix Bag 1 BAG IV SCH (23:29)
[2025-04-18] MEDS: Ondansetron 4 MG/2 ML SDV IVPUSH ONE (23:38)
[2025-04-18] MEDS: LORazepam 2 MG/ML SDV IVPUSH STA (23:40)
[2025-04-18] MEDS ORDERED: hydrALAZINE 20 MG/ML SDV IVPUSH PRN (23:42)
[2025-04-18] MEDS ORDERED: Acetaminophen/HYDROcodone 325-5 MG Tab PO PRN (23:43)
[2025-04-18] MEDS: Scopalamine 1mg/3day Transdermal Patch TOP ONE (23:44)
[2025-04-18] MEDS ORDERED: Pharmacy Consult Order SCH (23:45)
[2025-04-19] MEDS ORDERED: 50% Dextrose in Water 50 ML Syringe IVPUSH PRN ×2 (00:11→01:06)
[2025-04-19] MEDS: Magnesium Sulfate/D5W 1 GM IV ONE (00:31)
[2025-04-19] MEDS: Heparin Sodium 5,000 Units/ML Vial IVPUSH ONE (00:48)
[2025-04-19] MEDS: Heparin Sodium/0.45% NaCl 25,000 UNITS/500 ML BAG IV SCH (00:56)
[2025-04-19] MEDS: Insulin Glarg,Human.Rec.Analog 100 Unit/ML 10 ML Vial SUBCUT ONE (01:13)
[2025-04-19] MEDS: MVI, Adult with Vitamin K 10 ML, Folic Acid 1 MG, Thiamine 100 MG in Lactated Ringers 1... IV ONE (03:08)
[2025-04-19] MEDS: Albumin Human 50 GM in Premix Bag 1 BAG IV ONE (03:17)
[2025-04-19] MEDS: Hydrocortisone Sodium Succinate 100 MG/2 ML SDV IVPUSH SCH (05:59)
[2025-04-19 06:22] LABS: BASOPHILS PERCENT AUTO 0.1 % (0.0-1.0); EOSINOPHILS PERCENT AUTO 0.0 % (1.0-3.0); LYMPHOCYTES PERCENT AUTO 1.5 % (20.5-50.1); MONOCYTES PERCENT AUTO 3.9 % (2-8); NEUTROPHILS PERCENT AUTO 94.5 % (42.2-75.2); PLATELET COUNT,PLT 176 10^3/uL (150-450); RED BLOOD CELL COUNT 5.14 10^6/uL (4.6-6.2); WHITE BLOOD CELL COUNT,WBC 24.6 10^3/uL (5.0-10.0)
[2025-04-19 06:45] LABS: A/G RATIO 1.2; ALANINE AMINOTRANSFERASE,ALT 13 U/L (16-63); ASPARTATE AMNIOTRANSFERASE,AST 12 U/L (15-37); BILIRUBIN TOTAL 5.1 mg/dL (0.2-1.0); BLOOD UREA NITROGEN,BUN 28 mg/dL (7-18); CHOLESTEROL HDL 14 mg/dL (40-59); CREATININE 1.56 mg/dL (0.70-1.30); EST CRCL DRUG DOSING (CG) 72.22 mL/min; GLUCOSE RANDOM 242 mg/dL (70-99); PROTEIN TOTAL,TP 6.4 g/dL (6.4-8.2)
[2025-04-19 06:56] LABS: CARBON DIOXIDE,CO2 18 mmol/L (21-32); CHLORIDE,CL 94 mmol/L (98-107); CHOLESTEROL LDL CALCULATED 24 mg/dL (0-100); CHOLESTEROL TOTAL < 50 mg/dL (0-199); ESTIMATED GFR 56 mL/min (>=60); POTASSIUM,K 4.5 mmol/L (3.5-5.1); SODIUM,NA 129 mmol/L (136-145)
[2025-04-19 08:09] VITALS: BP 103/78
[2025-04-19 08:23] LABS: APPEARANCE,URINE CLEAR (CLEAR); GLUCOSE,URINE 500 (NEGATIVE); OCCULT BLOOD,URINE NEGATIVE (NEGATIVE)
[2025-04-19 08:25] LABS: AMPHETAMINES,URINE NEGATIVE (NEGATIVE); BARBITURATES,URINE NEGATIVE (NEGATIVE); MDMA (ECSTASY), URINE NEGATIVE (NEGATIVE); METHAMPHETAMINES,URINE NEGATIVE (NEGATIVE); OPIATES,URINE NEGATIVE (NEGATIVE); OXYCODONE,URINE NEGATIVE (NEGATIVE); PHENCYCLIDINE,URINE NEGATIVE (NEGATIVE); TCA,URINE NEGATIVE (NEGATIVE)
[2025-04-19 08:34] LABS: EPITHELIAL CELLS,URINE FEW /HPF (NOT SEEN)
[2025-04-19] MEDS ORDERED: INSULIN GLARGINE HUM REC ANLOG 100 UNIT SQ SCH (09:00)
[2025-04-19] MEDS ORDERED: [UNRECOGNIZED DRUG - OTHER] SQ SCH (09:00)
[2025-04-19 09:08] VITALS: PULSE 86
[2025-04-19] MEDS: Insulin Glarg,Human.Rec.Analog 100 Unit/ML 10 ML Vial SUBCUT SCH (09:29)
[2025-04-19] MEDS: Bacitracin/Neomycin/Polymyxin B Oint 28.4 GM Tube TOP SCH (11:12)
== END 2025-04-19 10:43 | DRG 872 ==
LOC: DL.ED 20:05 → DL.MS 21:40 → UNDOADMIN 21:40 → DL.MS 22:53
PROVIDERS: ADMIT Internal Medicine; ATTEND Internal Medicine
DX: A41.9 Sepsis, unspecified organism (principal); I47.20 Ventricular tachycardia, unspecified; I24.9 Acute ischemic heart disease, unspecified; K74.60 Unspecified cirrhosis of liver; E87.20 Acidosis, unspecified; L03.115 Cellulitis of right lower limb; E44.0 Moderate protein-calorie malnutrition; I13.0 Hypertensive heart and chronic kidney disease with heart failure and stage 1 through stage 4 chronic kidney disease, or unspecified chronic kidney disease; I42.9 Cardiomyopathy, unspecified; I50.22 Chronic systolic (congestive) heart failure; R65.20 Severe sepsis without septic shock; E11.628 Type 2 diabetes mellitus with other skin complications; E87.8 Other disorders of electrolyte and fluid balance, not elsewhere classified; E87.5 Hyperkalemia; E11.65 Type 2 diabetes mellitus with hyperglycemia; E11.22 Type 2 diabetes mellitus with diabetic chronic kidney disease; N18.31 Chronic kidney disease, stage 3a; E78.5 Hyperlipidemia, unspecified; I25.10 Atherosclerotic heart disease of native coronary artery without angina pectoris; D63.1 Anemia in chronic kidney disease; K70.31 Alcoholic cirrhosis of liver with ascites; S91.321A Laceration with foreign body, right foot, initial encounter; K72.90 Hepatic failure, unspecified without coma; Z95.1 Presence of aortocoronary bypass graft; Z72.0 Tobacco use; Z68.26 Body mass index [BMI] 26.0-26.9, adult; E87.1 Hypo-osmolality and hyponatremia; I11.0 Hypertensive heart disease with heart failure; Z79.84 Long term (current) use of oral hypoglycemic drugs; I50.9 Heart failure, unspecified; Z79.1 Long term (current) use of non-steroidal anti-inflammatories (NSAID); Z79.891 Long term (current) use of opiate analgesic; W45.8XXA Other foreign body or object entering through skin, initial encounter; W25.XXXA Contact with sharp glass, initial encounter; Y92.89 Other specified places as the place of occurrence of the external cause; E11.9 Type 2 diabetes mellitus without complications; F17.200 Nicotine dependence, unspecified, uncomplicated; Z79.82 Long term (current) use of aspirin; Z79.4 Long term (current) use of insulin; Z79.899 Other long term (current) drug therapy
CPT/HCPCS: 36415; 71045; 73630-RT; 80053; 80061; 80162; 80202; 80305-QW; 80307; 81001; 82009; 82947; 83605; 83735; 84145; 84484; 85025; 85379; 85610; 85730; 86140; 87040; 87070; 87077; 87205; 87428-QW; 90471; 90715; 93005; 93010; 93971; 99223; 99285; A9270-GY; J0616; J0692; J1160; J1644; J1720; J1808; J1815-GY; J2060; J2405; J2470; J3373; J3411; J3475; J3490; J7030; J7040; J7120; P9047